=== PATIENT | male | born 1995 | race Caucasian/White ===

== ENCOUNTER 2017-05-01 01:49 | Emergency (ER) | payer OTHER ==
[2017-05-01] MEDS ORDERED: LIDOCAINE 1% 2 ML VIAL SUBQ STA (02:10)
--- NOTE | 2017-05-01 02:41 | CT Preliminary Report ---
Exam: CT FACIAL BONES W/O IMPRESSION: 1. No acute facial bone fracture. 2. Moderate right periorbital hematoma without evidence of acute intraorbital injury. [facility] SITE ID: [id number]
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
[2017-05-01] MEDS ORDERED: BACITRACIN OINT TOP STA (03:03)
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
[2017-05-01 03:11] VITALS: BP 118/72
== END 2017-05-01 03:18 | disposition home or self-care (01) ==
LOC: ED 01:49
DX: S01.111A Laceration without foreign body of right eyelid and periocular area, initial encounter (principal); Y04.2XXA Assault by strike against or bumped into by another person, initial encounter
CPT/HCPCS: 12013; 70486; 99282; 99283; A9270